=== PATIENT | female | born 1985 | race Caucasian/White ===

== ENCOUNTER 2019-07-19 11:45 | Outpatient (RCR) | payer OTHER, SELFPAY ==
[2019-06-24 14:32] LABS: Beta HCG Quantitative 61.92 mIU/ML
[2019-07-19 12:57] LABS: Beta HCG Quantitative < 2.39 mIU/ML
== END 2019-09-22 23:59 | disposition home or self-care (01) ==
LOC: ANHLAB 11:45
PROVIDERS: PCP Advanced Practice Midwife; Visit Provider Advanced Practice Midwife
DX: O20.0 Threatened abortion (principal); Z3A.00 Weeks of gestation of pregnancy not specified
CPT/HCPCS: 36415; 84702

== ENCOUNTER 2019-07-31 00:55 | Emergency (ER) | payer OTHER, SELFPAY ==
--- NOTE | ~2019-07-31 | US_ITS ---
EXAMINATION: US venous doppler LE RT DATE: 07/31/2019 06:03 INDICATION: Right lower limb swelling and pain TECHNIQUE: Grayscale ultrasound images without and with compression and Doppler ultrasound images of the right lower extremity veins were obtained. COMPARISON: None. FINDINGS: The visualized portions of right common femoral vein, profunda (deep) femoral vein, femoral vein, pop liteal vein, peroneal trunk, posterior tibial veins, peroneal veins, gastrocnemius vein and greater s aphenous vein outflow are patent. IMPRESSION: 1. No deep venous thrombosis in the right lower limb. Reviewed, dictated and finalized at location A. 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
[2019-07-31 00:59] VITALS: BP 186/114; PULSE 84; RESP 20; TEMP 36.3; O2SAT 99
--- NOTE | 2019-07-31 01:49 | ED.LOWEXIN ---
HPI - Extremity Injury (Lower) General Chief Complaint: Extremity Injury, Lower Stated Complaint: right leg pain Time Seen by Provider: 07/31/19 01:47 Source: patient and RN notes reviewed Mode of arrival: other Limitations: no limitations History of Present Illness HPI Narrative: Pt is a 33 y/o female who presents to the ED with c/o constant right calf cramping pain with swelling that began yesterday at 8:30 PM, but has progressively worsened. She notes that her pain radiates to her toes and to her thigh. Pt notes that she took a hot bath, used Biofreeze patch, 2 tablets of Tylenol, and orange juice, but with no relief. Pt denies CP and SOB. MD complaint: other (leg pain) Onset (ago): day(s) (1) Relieving factors: nothing Associated symptoms: swelling Other symptoms: none Treatments prior to arrival: heart therapy Related Data Home Medications Medication Instructions Recorded Confirmed PNV cmb#95-ferrous fumarate-FA 1 tablet PO DAILY 07/01/19 [] labetalol 100 mg PO Q12H 07/01/19 Allergies Allergy/AdvReac Type Severity Reaction Status Date / Time Latex, Natural Rubber Allergy Unknown Verified 07/01/19 10:27 Review of Systems Review of Systems: All systems reviewed & are unremarkable except as noted in HPI and below Cardiovascular: Cardiovascular: Denies chest pain Respiratory: Respiratory: Denies dyspnea Musculoskeletal: Musculoskeletal: Reports other (right calf cramping pain that radiates to her toes and to her thigh) PMFSH Past Medical History Medical History (Updated 07/31/19 @ 06:50 by Krystina Mcgowan MD) Hypertension Miscarriage 06/30/18 Surgical History Surgical History (Updated 07/01/19 @ 13:37 by Brooke Billingsley) H/O: x3 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 HEAD: Normocephalic, atraumatic EYES: PERRLA and EOMI, conjunctiva clear without discharge EARS: TM's clear bilaterally without erythema or dullness NOSE: Nares clear, no rhinorrhea or epistaxis THROAT:Mucous membranes moist, Oropharynx normal without erythema, exudate, peritonsillar swelling or fluctuance NECK: Supple, without lymphadenopathy or mass RESPIRATORY: No respiratory distress, Airway patent, Respirations non-labored, Clear to auscultation without rales, rhonchi or wheeze HEART: Regular rate and rhythm. No murmur heard. Normal peripheral pulses. ABDOMEN: Soft, nontender, nondistended, normal active bowel sounds. No masses. No rebound or guarding, No organomegaly. EXTREMITIES: bilateral mild pedal edema, normal strength with full range of motion. right leg calf tenderness, with spasm present, no significant swelling noted, good DP , PT pulses bilateral SKIN: Warm, dry, normal color without rash NEURO: Alert and oriented x3. CN 2-12 grossly intact. No focal deficits. PSYCH: Normal mood and affect. Course Reevaluation(s) Reevaluation #1: Patient states she feels much better. She is able to move leg better. No DVT Date: 07/31/19 Time: 06:48 Vital Signs Vital signs: Vital Signs Temperature 97.4 F L 07/31/19 00:59 Pulse Rate 84 07/31/19 00:59 Respiratory Rate 20 07/31/19 00:59 Blood Pressure 186/114 H 07/31/19 00:59 Pulse Oximetry 99 07/31/19 00:59 Temperature 97.4 F L 07/31/19 00:59 Pulse Rate 81 07/31/19 03:50 Respiratory Rate 16 07/31/19 03:50 Blood Pressure 180/105 H 07/31/19 03:50 Pulse Oximetry 100 07/31/19 03:50 MDM - Extremity Injury (Lower) Lab Data Attestation: I reviewed the patient's lab results. Result diagrams: 07/31/19 02:32
[2019-07-31] MEDS: KETOROLAC 30 MG/ML VIAL (*BKC) IV PUSH (02:35)
[2019-07-31 02:54] LABS: Basophils Absolute Auto 0.1 K/mm3 (0.0-0.1); Basophils Percent Auto 0.4 % (0.2-1.2); Eosinophils Absolute Auto 0.5 K/mm3 (0-0.3); Eosinophils Percent Auto 3.3 % (0-4.4); Hematocrit 34.9 % (37.0-47.0); Hemoglobin 10.9 g/dL (12.0-15.0); Immature Granulocyte Absolute 0.07 K/mm3 (0.00-0.031); Immature Granulocyte Percent A 0.5 % (0-0.5); Lymphocytes Absolute Auto 3.68 K/mm3 (0.9-3.2); Lymphocytes Percent Auto 27.2 % (18.3-44.2); Mean Corpuscular HGB Conc 31.2 g/dl (32-36); Mean Corpuscular Hemoglobin 25.9 pg (26-34); Mean Corpuscular Volume 82.9 fl (80-100); Mean Platelet Volume 9.6 fl (7.4-10.4); Monocytes Absolute Auto 0.9 K/mm3 (0.1-0.6); Monocytes Percent Auto 6.3 % (2.6-8.5); Neutrophils Absolute Auto 8.4 K/mm3 (1.3-6.7); Neutrophils Percent Auto 62.3 % (45.5-73.1); Platelet Count Result 355 k/mm3 (150-375); Red Blood Count 4.21 M/mm3 (4.2-5.4); Red Cell Distribution Width 14.7 % (11.5-14.5); White Blood Count 13.5 K/mm3 (4.5-10.0)
[2019-07-31] MEDS: DIAZEPAM 5 MG TABLET PO (02:56)
[2019-07-31 02:59] LABS: Partial Thromboplastin Time 31.5 SECONDS (22.3-36.8)
[2019-07-31 03:01] LABS: D Dimer 0.67 ug/mL (<0.48)
[2019-07-31 03:07] LABS: Alanine Aminotransferase 20 U/L (4-35); Albumin Level 4.4 g/dL (3.5-5.1); Alkaline Phosphatase 91 U/L (38-126); Aspartate Amino Transferase 25 U/L (14-36); Bilirubin,Total 0.4 mg/dL (0.2-1.3); Blood Urea Nitrogen 18 mg/dL (7-17); Calcium 9.5 mg/dL (8.4-10.2); Carbon Dioxide 26 mmol/L (22-30); Chloride 98 mmol/L (98-107); Estimated CRCL calculation 168 ml/min; Estimated Glomerular Filt Rate > 60; Glucose 104 mg/dL (65-105); Potassium 4.1 mmol/L (3.4-5.0); Sodium 138 mmol/L (137-145)
[2019-07-31 03:30] LABS: Creatine Kinase 52 U/L (30-135)
[2019-07-31 03:50] VITALS: BP 180/105; PULSE 81; RESP 16; O2SAT 100
== END 2019-07-31 07:25 | disposition home or self-care (01) ==
PROVIDERS: Emergency Provider General Practice; PCP Family Medicine
DX: M62.838 Other muscle spasm (principal); Z87.891 Personal history of nicotine dependence; I10 Essential (primary) hypertension
CPT/HCPCS: 36415; 80053; 82550; 83735; 85025; 85380; 85610; 85730; 93971; 96374; 99284; A9270; J1885

== ENCOUNTER 2019-11-09 09:52 | Emergency (ER) | payer OTHER, SELFPAY ==
--- NOTE | ~2019-11-09 | XR_ITS ---
XR chest 1V portable DATE: 11/09/2019 11:29 INDICATION: Cough TECHNIQUE: Portable AP chest views on 11/09/2019 at 1124 and 1126 hours COMPARISON: 04/14/2019 PA and lateral chest FINDINGS: Cardiomegaly. There is mild pulmonary vascular congestion/redistribution. The lungs are alejandrina ar of infiltrate or consolidation. No pleural effusion or pulmonary vascular congestion or pneumothor ax is evident. IMPRESSION: Cardiomegaly, mild pulmonary vascular congestion/redistribution Reviewed, dictated and finalized at location A.
--- NOTE | ~2019-11-09 | CT_ITS ---
EXAMINATION: CTA chest PE protocol DATE: 11/09/2019 12:19 INDICATION: Dyspnea. Cough. TECHNIQUE: Computed tomography angiography (CTA) of the chest was performed with 100 mL Omnipaque-350 intravenous contrast timed to evaluate the pulmonary arteries. Coronal maximum intensity projection 3D-reconstructions were created by the technologist. Automated exposure control and iterative reconst ruction technique were employed. Exam dose: 1128.71 mGy-cm total exam DLP. COMPARISON: 11/09/2019 portable AP chest FINDINGS: There is diagnostic contrast enhancement of the pulmonary arteries and no evidence of pulmo nary embolism. No thoracic aortic aneurysm or dissection. No hilar or mediastinal mass lesion or lymphadenopathy. There is cardiomegaly. No pericardial effusion. No pleural effusion. Scattered mild groundglass bilateral pulmonary infiltrates, likely due to small airways disease. No p ulmonary consolidation. No pneumothorax. Normal adrenal glands. Included skeletal structures are unremarkable. IMPRESSION: No pulmonary embolism Cardiomegaly Reviewed, dictated and finalized at Location [facility]. Reviewed, dictated and finalized at location A.
[2019-11-09 10:04] VITALS: BP 179/92; PULSE 80; RESP 18; TEMP 36.8; O2SAT 100
--- NOTE | 2019-11-09 10:09 | ECG_ITS ---
Measurements Intervals [place] Rate: 77 P: CT: 0 QRS: 56 QRSD: 89 T: 143 QT: 396 QTc: 450 Interpretive Statements ECTOPIC ATRIAL RHYTHM FREQUENT ATRIAL PREMATURE COMPLEXES NONSPECIFIC ST & T-WAVE ABNORMALITY- INF/LAT LEADS BASELINE WANDER- I, II, AVR, AVL, AVF, V4-V6 ABNORMAL ECG Electronically Signed On 11-09-2019 12:01:24 CDT by Robert Beltran D.O.
[2019-11-09 10:22] VITALS: PULSE 74
[2019-11-09 11:12] LABS: Basophils Absolute Auto 0.1 K/mm3 (0.0-0.1); Basophils Percent Auto 0.6 % (0.2-1.2); Eosinophils Absolute Auto 0.5 K/mm3 (0-0.3); Eosinophils Percent Auto 3.8 % (0-4.4); Hematocrit 32.3 % (37.0-47.0); Hemoglobin 10.4 g/dL (12.0-15.0); Immature Granulocyte Absolute 0.07 K/mm3 (0.00-0.031); Immature Granulocyte Percent A 0.5 % (0-0.5); Lymphocytes Absolute Auto 2.86 K/mm3 (0.9-3.2); Lymphocytes Percent Auto 21.8 % (18.3-44.2); Mean Corpuscular HGB Conc 32.2 g/dl (32-36); Mean Corpuscular Hemoglobin 25.7 pg (26-34); Mean Corpuscular Volume 79.8 fl (80-100); Mean Platelet Volume 9.3 fl (7.4-10.4); Monocytes Absolute Auto 0.8 K/mm3 (0.1-0.6); Monocytes Percent Auto 5.9 % (2.6-8.5); Neutrophils Absolute Auto 8.8 K/mm3 (1.3-6.7); Neutrophils Percent Auto 67.4 % (45.5-73.1); Platelet Count Result 333 k/mm3 (150-375); Red Blood Count 4.05 M/mm3 (4.2-5.4); Red Cell Distribution Width 15.1 % (11.5-14.5); White Blood Count 13.1 K/mm3 (4.5-10.0)
[2019-11-09 11:14] LABS: Add Urine Microscopic? NO; Appearance Urine Clear (Clear); Bilirubin Urine Negative (Negative); Blood Urine Negative (Negative); Color Urine Yellow (Yellow); Glucose Urine UA Negative (Negative); Ketones Urine Negative (Negative); Leukocyte Esterase Ur Negative LEU/UL (Negative); Nitrate Urine Negative (Negative); Protein Urine Negative (Negative); Urobilinogen Urine Negative mg/dL (<2.0)
[2019-11-09] MEDS: ONDANSETRON INJ 4 MG/2 ML VIAL IV PUSH (11:18)
[2019-11-09 11:22] LABS: Partial Thromboplastin Time 29.8 SECONDS (22.3-36.8); Prothrombin Time 13.2 Seconds (11.1-14.7)
[2019-11-09 11:23] LABS: Alanine Aminotransferase 20 U/L (4-35); Albumin Level 4.2 g/dL (3.5-5.1); Alkaline Phosphatase 79 U/L (38-126); Aspartate Amino Transferase 25 U/L (14-36); Bilirubin,Total 0.5 mg/dL (0.2-1.3); Blood Urea Nitrogen 8 mg/dL (7-17); Carbon Dioxide 23 mmol/L (22-30); Chloride 104 mmol/L (98-107); Estimated CRCL calculation 172 ml/min; Estimated Glomerular Filt Rate > 60; Glucose 101 mg/dL (65-105); Sodium 137 mmol/L (137-145)
[2019-11-09 11:24] LABS: Lactic Acid Reflex 1.2 mmol/L (0.7-2.1)
[2019-11-09 11:31] LABS: Magnesium 1.9 mg/dL (1.6-2.3)
[2019-11-09 11:35] LABS: NT Pro B Type Natriuretic Pept 716 PG/ML (5-100); Troponin I < 0.012 ng/mL (0.000-0.034)
--- NOTE | 2019-11-09 14:19 | ECG_ITS ---
Measurements Intervals [place] Rate: 77 P: HI: 0 QRS: 55 QRSD: 84 T: 128 QT: 390 QTc: 442 Interpretive Statements ECTOPIC ATRIAL RHYTHM BORDERLINE T WAVE ABNORMALITY- DIFFUSE LEADS ABNORMAL ECG Electronically Signed On 11-09-2019 16:40:04 CDT by Robert Beltran D.O.
--- NOTE | 2019-11-09 14:41 | ED.GENADULT ---
HPI - General Adult General Chief complaint: Unspecified Stated complaint: Multiple Complaints Time Seen by Provider: 11/09/19 09:55 Source: RN notes reviewed History of Present Illness HPI narrative: Patient presents emergency department from home for shortness of breath. Patient states that for the past week she has been having shortness of breath with exertion. She states is associated with dizziness. She states at rest she does not have any shortness of breath. Patient states that she also has been having some dysuria for the past 2 days as well as concerns of possibly being . Patient denies any fevers or chills chest pain abdominal pain nausea vomiting or any other symptoms. 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 She does take blood pressure medication and is on Synthroid Related Data Home Medications Medication Instructions Recorded Confirmed labetalol 100 mg PO Q12H 07/01/19 PNV cmb#95-ferrous fumarate-FA 1 tablet PO DAILY 11/09/19 [] levothyroxine 112 mcg PO DAILY 11/09/19 Allergies Allergy/AdvReac Type Severity Reaction Status Date / Time Latex, Natural Rubber Allergy Unknown Verified 11/09/19 10:11 Review of Systems Review of Systems: Narrative: Gen.: Denies fevers or chills Eyes: Denies eye pain or visual change ENT: Denies congestion Respiratory: See HPI CV: Denies chest pain or palpitations GI: Denies abdominal pain nausea, emesis or diarrhea d reports dysuria Musculoskeletal: Denies back pain or muscle pain Neuro: Denies numbness, tingling, weakness or focal weakness Skin: Denies rash Except as documented, all other systems reviewed and negative [facility] Past Medical History Medical History Hypertension Hypothyroidism Miscarriage 06/30/18 Surgical History Surgical History (Updated 07/01/19 @ 13:37 by Brooke Billingsley) H/O: x3 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 CARDIOVASCULAR: Regular rate and rhythm without murmurs rubs or gallops. ABDOMINAL: Obese soft, nontender, nondistended, no rebound or guarding MUSCULOSKELETAl: Moves all extremities. No clubbing, cyanosis or edema. NEURO: Awake and alert. Following commands, speech normal, no focal deficits SKIN:: Warm, dry. No rashes lesions or abrasions PSYCHIATRIC: Normal affect/mood, Course Course Emergency Course: Called and discussed cardiomegaly and mild edema findings with Dr. Lawrence. At this time with the patient having no hypoxia at rest recommends the patient be discharged follow-up as an outpatient. States that patient to be followed with congenital heart clinic at either [place] or [facility] Discussed with patient results of workup and diagnosis. Discussed need for follow-up with primary care, proper use of medication, and reasons to return to the emergency department. Patient understands and agrees to current treatment plan. Discussed with patient to follow-up with her PCP for her hypothyroidism Vital Signs Vital signs: Vital Signs Temperature 98.2 F 11/09/19 10:04 Pulse Rate 80 11/09/19 10:04 Respiratory Rate 18 11/09/19 10:04 Blood Pressure 179/92 H 11/09/19 10:04 Pulse Oximetry
[2019-11-09 16:16] VITALS: BP 152/78; PULSE 78; RESP 16; O2SAT 97
== END 2019-11-09 16:22 | disposition home or self-care (01) ==
PROVIDERS: Emergency Provider Emergency Medicine; PCP Family Medicine
DX: R06.00 Dyspnea, unspecified (principal); I10 Essential (primary) hypertension; E03.9 Hypothyroidism, unspecified; Z87.891 Personal history of nicotine dependence; I49.1 Atrial premature depolarization; R94.31 Abnormal electrocardiogram [ECG] [EKG]
CPT/HCPCS: 36415; 71045; 71275; 80053; 81003; 81025; 83605; 83735; 83880; 84443; 84484; 85025; 85610; 85730; 93005; 96374; 99284; J2405; Q9967